=== PATIENT | female | born 1965 | race Caucasian/White ===

== ENCOUNTER 2019-07-06 16:36 | Emergency (ER) | payer MEDICARE, SELFPAY ==
[2019-07-06 16:58] VITALS: BP 127/80; PULSE 95; RESP 20; TEMP 36.7; O2SAT 98
--- NOTE | 2019-07-06 17:18 | ED.GENADULT ---
HPI - General Adult General Chief complaint: Skin/Abscess/Foreign Body Stated complaint: HIVES Time Seen by Provider: 07/06/19 17:18 Source: patient Mode of arrival: ambulatory Limitations: no limitations History of Present Illness HPI narrative: 54-year-old female patient presents to the [facility] with complaints of a rash that started today. Patient states that the rash is at her hairline, behind her neck, on bilateral arms and bilateral lower extremities. Patient states it is itchy. Patient states that she gets these often and is usually anxiety induced hives. Patient states she has been treated for it before this in the past. Patient denies taking anything for her symptoms today. Patient states that antihistamines typically do not work for her and she always needs steroids. Related Data Home Medications Medication Instructions Recorded Confirmed calcium carbonate-vitamin D3 tablet PO 07/06/19 [Calcium 600 with Vitamin D3] coenzyme Q10 [Co Q-10] 10 mg PO ONCE 07/06/19 07/06/19 Allergies Allergy/AdvReac Type Severity Reaction Status Date / Time No Known Allergies Allergy Verified 06/26/17 16:36 Review of Systems Review of Systems: Narrative: CONSTITUTIONAL: Denies fever, chills, or sweats. EYES: Denies visual changes, redness, or discharge. ENT: Denies rhinorrhea, congestion, sore throat, or otalgia. CARDIOVASCULAR: Denies chest pain, palpitations, or edema. RESPIRATORY: Denies cough or dyspnea. GASTROINTESTINAL: Denies abdominal pain, nausea, vomiting, or diarrhea. GENITOURINARY: Denies dysuria or hematuria. SKIN: Positive rash with itching that started today MUSCULOSKELETAL: Denies back pain, joint pain, or myalgia. NEUROLOGIC: Denies headache, numbness, or weakness. PSYCHIATRIC: Denies anxiety or depression. PMFSH Comments At the time of my signature I agree with nursing past medical history, surgical, social, and family history. There is no relevant family history pertinent to the presenting complaint. Exam Narrative: Exam Narrative: GENERAL: Well-appearing, well-nourished, and in no acute distress. HEAD: Normocephalic, atraumatic. EYES: PERRLA and EOMI. ENT: Nares clear, no rhinorrhea or epistaxis. Mucous membranes moist. NECK: Supple. No lymphadenopathy. No stridor noted. CHEST: Clear to auscultation. No respiratory distress. Patient able talk in clear complete sentences. HEART: Regular rate and rhythm. No murmur heard. Normal peripheral pulses. ABDOMEN: Soft, nontender, nondistended, normal active bowel sounds. EXTREMITIES: Normal range of motion. No edema. SKIN: Patient has tiny flat irregular macules and papules noted to various spots on the bilateral upper extremities more so prominent at the hairline to the posterior neck. NEURO: No focal deficits. Alert and oriented x3. Course Vital Signs Vital signs: Vital Signs Temperature 36.7 C 07/06/19 16:58 Pulse Rate 95 07/06/19 16:58 Respiratory Rate 20 07/06/19 16:58 Blood Pressure 127/80 07/06/19 16:58 Pulse Oximetry 98 07/06/19 16:58 Temperature 36.7 C 07/06/19 16:58 Pulse Rate 95 07/06/19 16:58 Respiratory Rate 20 07/06/19 16:58 Blood Pressure 127/80 07/06/19 16:58 Pulse Oximetry 98 07/06/19 16:58 Vital signs reviewed. Medical Decision Making Differential Diagnosis Differential Diagnosis: Differential diagnosis: Contact dermatitis, poison timoteo, poison sumac, psoriasis, eczema, allergic reaction, drug reaction, scabies, tinea syphilis, lung disease, viral exanthema, pityriasis, erythema multiforme. Discussed with patient that since she has not tried anything yet today for the rash and that this typically is what she calls anxiety induced hives I think that we need to try an antihistamine first before jumping to steroids. Discussed with patient that typically the best thing for 6 hives is fexofenadine and I would usually prescribe it twice a day to help with the itching. Discussed with patient she would n
--- NOTE | 2019-07-06 17:37 | PC.NURSE ---
pt unhappy was not getting steroids wanted. did not want to talk to Muna again. Pt left with out discharge instructions.
== END 2019-07-06 17:30 | disposition home or self-care (01) ==
PROVIDERS: Emergency Provider Nurse Practitioner Family; PCP Emergency Medicine
DX: L50.9 Urticaria, unspecified (principal); M79.7 Fibromyalgia
CPT/HCPCS: 99213; G0463

== ENCOUNTER 2022-06-10 13:21 | Outpatient (CLI) | payer MEDICARE, SELFPAY ==
--- NOTE | 2022-07-01 00:47 | WPDSLEEPSTUD ---
Sleep Study Date of Study: 06/10/22 Ordering Provider: Nito Dunham PA-C Interpreting Physician: Genesis Mercado MD Sleep Study Type: Split Polysomnogram Height: 1.6 m Weight: 72.575 kg Body Mass Index: 28.3 Neck Circumference (inches): 15 Convoy: 11 Reason for Sleep Study Hypersomnolence Sleep History Alisa Nino is a 57-year-old woman who falls asleep easily. She has frequent awakenings during the night. She is able to return to sleep easily but her sleep does not feel deep or refreshing. She wakes up choking on saliva. She has been having these problems for over 10 years. Even back in her 20s she she was told that she stops breathing in her sleep. She has always had snoring. She had sinus surgery 15 years ago that helped for a few years however her problems returned. She is always sleepy during the day. She does not awaken from sleep feeling short of breath but occasionally awakens at night with heartburn, belching and coughing. She constantly has trouble sleeping if she has a cold. She frequently gasps for breath at night. She occasionally sweats excessively at night. She occasionally notices her heart pounding or beating irregularly at night. She frequently falls asleep during the day however she does not fall asleep involuntarily or while driving. She does not have loss of muscle tone with strong emotion. She frequently has daytime trouble due to her excessive sleepiness. 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 she does not feel paralyzed on waking or falling asleep. She constantly has vivid dreamlike scenes on waking or falling asleep. She rarely feels afraid to go to sleep. She occasionally has nightmares. She frequently remembers her dreams. She constantly has racing thoughts. She frequently feels sad or depressed. She constantly has anxiety. She frequently has muscular tension. She rarely notices parts of her body jerking. She frequently kicks during the night. She does not have crawling or aching feelings in her legs or any kind of leg pain at night. She does not have morning jaw pain. She frequently grinds her teeth during sleep. She rarely is bothered by pain during the day. She is not awakened by pain during the night. She occasionally wakes up feeling stiff in the morning with sore achy muscles and pain in the neck and spine. She has fatigue, memory problems, nightmares, insomnia and she takes antacids regularly. Normal bedtime is Between 8:00 p.m. and 10:00 p.m., taking 15 minutes to fall asleep but sometimes as long as 1 hour. She may wake 10-12 times during the night. These awakenings usually start 3 hours after falling asleep. She may try to roll over and return to sleep. Sometimes she is able to return to sleep within 5 minutes. Her normal wake up time is 5:00 a.m.. She keeps the same schedule on weekends. She stays in bed for 1-2 hours after waking. Her sleeping problems interrupt her social life. She has no energy to have social activities. She takes naps in the afternoon or evenings, at times. She may feel refreshed briefly following a nap, however she is soon tired. She feels adequate for 3-4 hours in the morning but after this she is tired and sleepy. She feels better in the morning compared to other times of day. Habits: Never smoked tobacco. No caffeine, alcohol or recreational substances. [facility] Past Medical History Medical History Allergies Anxiety Depression GERD (gastroesophageal reflux disease) Hypertension Family History Family History Father Alcoholism Hypertension Mother Cancer Grandparent Cancer Heart disease Cerebrovascular accident Sibling Diabetes mellitus Hypertension Heart disease Social History Social History Smoking status: Never smoker Second hand tobacco smoke exposure: N
[2022-07-01 00:55] VITALS: BMI 28.3
== END 2022-06-11 06:11 | disposition home or self-care (01) ==
PROVIDERS: PCP Physician Assistant; Visit Provider Physician Assistant
DX: G47.33 Obstructive sleep apnea (adult) (pediatric) (principal); I10 Essential (primary) hypertension
CPT/HCPCS: 95811

== ENCOUNTER 2024-04-21 08:53 | Outpatient (CLI) | payer MEDICARE, SELFPAY ==
--- NOTE | ~2024-04-21 | CT_ITS ---
CT sinus wo con Ordering provider: Stalin Hernandez DO History: . Chronic sinusitis, unspecified . Comparison: None. Technique: Thin slice Scans CT of the paranasal sinuses was performed with coronal and sagittal refor matted images. No IV contrast. . Automated exposure control and iterative reconstruction technique w ere employed. The dose-length product was 389.16 mGy-cm. Findings: NASAL SEPTUM: midline. OSTEOMEATAL UNITS: Bilaterally patent. NASAL TURBINATES AND NASOPHARYNX: Normal. PARANASAL SINUSES: Well aerated. Minimal bilateral ethmoid sinus disease. VISUALIZED MASTOIDS: Normal as visualized. BONES: Normal. SUPERFICIAL SOFT TISSUES/VISUALIZED BRAIN PARENCHYMA: Normal. IMPRESSION: Minimal bilateral ethmoid sinus disease. Otherwise, No definite abnormality seen. Reviewed, dictated and finalized at location A. TENDER IMPRESSION: Minimal bilateral ethmoid sinus disease. Otherwise, No definite abnormality see n.
== END 2024-04-21 08:54 | disposition home or self-care (01) ==
LOC: GOSHIMG 08:54
PROVIDERS: PCP Physician Assistant; Visit Provider Internal Medicine
DX: J32.9 Chronic sinusitis, unspecified (principal)
CPT/HCPCS: 70486

== ENCOUNTER 2025-02-16 00:24 | Day surgery (SDC) | payer MEDICARE, SELFPAY ==
[2025-02-07 09:25] VITALS: BMI 26.6
--- OUTSIDE RECORDS SUMMARY | 2025-02-16 00:27 | XMS_ITS | Clinical Summary ---
Author Organization [facility] [address] [place] Address [address] [place] [id number] Care Team Providers Care Instrument Assembler Name Role Phone No, Physician Primary Care Provider [phone] Allergies No known active allergies Medications predniSONE (DELTASONE) 10 mg tabletIndication s:Poison timoteo Take 4 tabs days 1&2, 3 tabs days 3 & 4, 2 tabs days 5 & 6, 1 tab days 7-10. 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 Gender Identity Not on file Sexual Orientation Not on file Obstetrics History Last Filed Vital Signs Vital Sign Reading Time Taken Comments Blood Pressure 142/90 10/25/2021 4:01 PM CDT Pulse 76 10/25/2021 4:01 PM CDT Temperature 36.8 C (98.3 F) 10/25/2021 4:01 PM CDT Respiratory Rate 16 10/25/2021 4:01 PM CDT Oxygen Saturation 98% 10/25/2021 4:01 PM CDT Inhaled Oxygen Concentration - - Weight 72.6 kg (160 lb) 10/25/2021 4:01 PM CDT Height 160 cm (5' 3) 10/25/2021 4:01 PM CDT Body Mass Index 28.34 10/25/2021 4:01 PM CDT Plan of Treatment Health Maintenance Due Date Last Done Comments Breast Cancer Screening-Mammogram 1964 Cervical Cancer Screening 1964 Colon Cancer Screening-Colonoscopy 1964 Depression Screening 1964 Hepatitis C Screening 1964 DTaP/Tdap/Td Vaccine (1 - Tdap) 1975 Hepatitis B Screening 1982 Regular Well Visit/Exam 18-64 1982 Zoster Vaccine (1 of 2) 2014 Covid-19 Vaccine (4 - 2024-2 6 season) 2024 01/25/2021, 07/20/2020, 06/29/2020 Influenza Vaccine (#1) 2024 Pneumococcal vaccine <65 Aged Out No longer eligible based on patient's age to complete this topic Insurance MEDICARE Care Teams Instrument Assembler Relationship Specialty Start Date End Date No, Physician PCP - General 10/11/21
--- OUTSIDE RECORDS SUMMARY | 2025-02-16 00:27 | XMS_ITS | Patient Health Record ---
Author Organization [facility] Address [address] [place] [address] Care Team Providers Care Sourcing Manager Name Role Phone Santiago Goetz Primary Care Provider [phone] Allergies No Known Allergies Reason For Referral No Information Medications Medication SIG (Take, Route, Fr equency, Duration) Notes Start Date End Date Status busPIRone HCl 15 MG 1 tablet Orally thre e times daily Active busPIRone HCl 30 MG 1 tablet Orally Twic e a day; Duration: 30 days 10/17/2020 Active Social History Sex Assigned At : Social History Observation Description Sex Assigned At Female Problems Problem Type SNOMED Code ICD Code Onset Dates Problem Status W/U Status Risk Notes Problem Generalized anxiety disorder (08318808) Generalized anxiety disorder (F41.1) Active confirmed Problem Mild recurrent major depression (43752488) Mild episode of recurrent major depressive disorder (F33.0) Active confirmed Plan Of Treatment No Information Insurance Providers Payer Name Payer Address Payer Phone Subscriber Number Group Number Insured Name Patient Relationship to Insured Coverage Start Date Coverage End Date MEDICARE PART A [address] [facility] [phone] [id number] Alisa Nino Self - patient is the insured 1 Medical (General) History Surgical History Surgery Date(Month/Year) TOTAL HYSTERECTOMY
--- OUTSIDE RECORDS SUMMARY | 2025-02-16 00:27 | XMS_ITS | Clinical Summary ---
Author Organization [facility] Address [address] [place] [address] Phone Care Team Providers Care Wares Sorter Name Role Phone Unavailable Primary Care Provider Unavailabl e Social History Tobacco Use Types Packs/Day Years Used Date Smoking Tobacco: Never Assessed Comments Unknown Sex and Gender Information Value Date Recorded Sex Assigned at Not on file Legal Sex Female 11:13 AM CDT Gender Identity Not on file Sexual Orientation Not on file Plan of Treatment Not on file Insurance MEDICARE
[2025-02-16 11:41] VITALS: BP 139/91; PULSE 81; RESP 18; TEMP 36.6; O2SAT 100
[2025-02-16] MEDS: LACTATED RINGERS 1,000 ML 150 ML IV CONT (12:16)
--- NOTE | 2025-02-16 12:46 | WPDANESEPPF ---
Anes - Initial Pre Proc Eval Procedure: Operation Date: 02/16/25 13:00 Proposed Procedures p Screening Colonoscopy - Patel Anthony MD Date/Time: 02/16/25 12:46 Surgeon: Patel Anthony MD Pre Op Diagnosis: Screening Patient Data Age: 59 Gender: F Height: 1.6 m Weight: 68.6 kg Last Vital Signs Temp 97.8 F 02/16/25 11:41 Pulse 81 02/16/25 11:41 Resp 18 02/16/25 11:41 BP 139/91 H 02/16/25 11:41 Pulse Ox 100 02/16/25 11:41 O2 Del Method Room Air 02/16/25 11:41 Allergies Allergy/AdvReac Type Severity Reaction Status Date / Time nitrofurantoin Allergy Unknown facial Verified 02/07/25 09:23 swelling Home Medications ?Medication ?Instructions ?Recorded ?Confirmed ?Type bupropion HCl 150 mg 24 hr tablet, 150 mg PO QAM #90 tabs 09/15/24 02/16/25 Rx extended release (Wellbutrin XL) lisinopril 30 mg tablet 30 mg PO DAILY #90 tabs 12/08/24 02/16/25 Rx cetirizine 5 mg-pseudoephedrine ER 1 tablet PO BID PRN sinus symptoms 01/09/25 02/16/25 Rx 120 mg tablet,extended #120 tabs release,12hr (Zyrtec-D) ondansetron 4 mg disintegrating 4 mg PO Q6H PRN nausea and 02/07/25 Rx tablet vomiting #4 tabs Patient hx anesthesia problems: none Family hx anesthesia problems: none Results Review: All pre-operative results and documents have been reviewed as part of the pre-operative evaluation. [facility] Past Medical History Medical History Depression Hypertension GERD (gastroesophageal reflux disease) Anxiety Allergies Surgical History Surgical History H/O: hysterectomy History of sinus surgery Family History Family History Father Alcoholism Hypertension Mother Cancer Grandparent Cancer Heart disease Cerebrovascular accident Sibling Diabetes mellitus Hypertension Heart disease suicide Social History Social History Smoking status: Never smoker Second hand tobacco smoke exposure: Yes Alcohol intake: current Substance use: current Substance use type: other Other substance usage details: THC gummies Do You Feel Safe in your Home?: Yes Lack of Transportation: No Lack of Food: Never True Current Housing: I Have Housing Concerned About Future Housing: No Difficulty Paying Gas/Electric Bills: No Difficulty Paying for Meds: No Currently Unemployed: No Education: Associate Degree Difficulty w/ Childcare or Family Care: No Living arrangements: with family Occupation/Education: unemployed 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 HTN, anxiety/depression. Informed Consent: The patient's anesthetic plan and its attendant risks and benefits were discussed with the patient/family/POA. Questions were solicited and answers provided to the satisfaction of the patient/family/POA.
--- NOTE | 2025-02-16 12:55 | PM.IMHP ---
H&P: HPI History of Present Illness Date/Time: 02/16/25 12:55 Chief Complaint: Screening colonoscopy Narrative: This is the patient's first colonoscopy after more than 20 years.. There are no GI symptoms and there is no family history of colorectal cancer. Review of Systems Review of Systems: All systems reviewed & are unremarkable except as noted in HPI and below PMFSH Past Medical History Medical History Depression Hypertension GERD (gastroesophageal reflux disease) Anxiety Allergies Surgical History Surgical History H/O: hysterectomy History of sinus surgery Family History Family History Father Alcoholism Hypertension Mother Cancer Grandparent Cancer Heart disease Cerebrovascular accident Sibling Diabetes mellitus Hypertension Heart disease suicide Social History Social History Smoking status: Never smoker Second hand tobacco smoke exposure: Yes Alcohol intake: current Substance use: current Substance use type: other Other substance usage details: THC gummies Do You Feel Safe in your Home?: Yes Lack of Transportation: No Lack of Food: Never True Current Housing: I Have Housing Concerned About Future Housing: No Difficulty Paying Gas/Electric Bills: No Difficulty Paying for Meds: No Currently Unemployed: No Education: Associate Degree Difficulty w/ Childcare or Family Care: No Living arrangements: with family Occupation/Education: unemployed 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 Gender identity (if verbalized by the patient): Female Spiritual care concerns: No Meds Home Medications and Allergies Home Medications ?Medication ?Instructions ?Recorded ?Confirmed ?Type bupropion HCl 150 mg 24 hr tablet, 150 mg PO QAM #90 tabs 09/15/24 02/16/25 Rx extended release (Wellbutrin XL) lisinopril 30 mg tablet 30 mg PO DAILY #90 tabs 12/08/24 02/16/25 Rx cetirizine 5 mg-pseudoephedrine ER 1 tablet PO BID PRN sinus symptoms 01/09/25 02/16/25 Rx 120 mg tablet,extended #120 tabs release,12hr (Zyrtec-D) ondansetron 4 mg disintegrating 4 mg PO Q6H PRN nausea and 02/07/25 Rx tablet vomiting #4 tabs Allergies Allergy/AdvReac Type Severity Reaction Status Date / Time nitrofurantoin Allergy Unknown facial Verified 02/07/25 09:23 swelling Vital Signs Vital Signs - 24 hr 02/16/25 11:41 Temperature 97.8 F Pulse Rate 81 Respiratory Rate 18 Blood Pressure 139/91 H Pulse Oximetry 100 Oxygen Delivery Room Air Exam Const: General: cooperative and healthy appearing Resp: Effort & Inspection: normal respiratory effort and able to speak in complete sentences Auscultation: clear to auscultation bilaterally Cardio: Rate: regular rate Rhythm: regular rhythm GI: Inspection: normal to inspection GI Palp: No No hepatosplenomegaly present Auscultation: normal bowel sounds Rectal Exam: deferred Skin: General skin exam: normal color Psych: Appearance: grossly normal Mental Status: mental status grossly normal Assessment and Plan Assessment and plan (1) Screening for colorectal cancer: Code(s): Z12.11 - Encounter for screening for malignant neoplasm of colon; Z12.12 - Encounter for screening for malignant neoplasm of rectum Status: Acute Assessment and Plan: The patient is deemed a good candidate for the procedure. Consent signed. Will proceed.
[2025-02-16 13:18] VITALS: BP 148/87; PULSE 70; RESP 15; O2SAT 96
[2025-02-16 13:28] VITALS: BP 132/81; PULSE 80; RESP 20; O2SAT 100
[2025-02-16 13:38] VITALS: BP 142/83; PULSE 77; RESP 19; O2SAT 100
== END 2025-02-16 13:46 | disposition home or self-care (01) ==
PROVIDERS: PCP Internal Medicine; Referring Provider Internal Medicine; Visit Provider Internal Medicine Gastroenterology
PROC: 0DJD8ZZ Inspection of Lower Intestinal Tract, Via Natural or Artificial Opening Endoscopic (ICD-10-PCS; CPT 45378; principal; 2025-02-16 13:00)
DX: Z12.11 Encounter for screening for malignant neoplasm of colon (principal); K64.8 Other hemorrhoids; K57.30 Diverticulosis of large intestine without perforation or abscess without bleeding; I10 Essential (primary) hypertension; K21.9 Gastro-esophageal reflux disease without esophagitis; F32.A Depression, unspecified; F41.9 Anxiety disorder, unspecified; F12.90 Cannabis use, unspecified, uncomplicated; Z98.890 Other specified postprocedural states; Z80.9 Family history of malignant neoplasm, unspecified; Z82.49 Family history of ischemic heart disease and other diseases of the circulatory system
CPT/HCPCS: G0105; J2704; J7120